=== PATIENT | female | born 1980 | race Caucasian/White ===

== ENCOUNTER 2017-09-04 12:00 | Emergency (ER) | payer MEDICAID ==
[2017-09-04] MEDS: BISACODYL 30 ML ENEMA PR (12:43)
[2017-09-04] MEDS: morphine 2 MG INJ IV (12:43)
[2017-09-04] MEDS: GLYCERIN (ADULT) SUPP PR (12:43)
== END 2017-09-04 14:32 | disposition home or self-care (01) ==
LOC: FTE 12:00
DX: K56.41 Fecal impaction (principal)
CPT/HCPCS: 96374; 99284-25